=== PATIENT | male | born 1975 | race Asian ===

== ENCOUNTER → 2021-01-28 03:29 | Outpatient (CLI) | payer BC, SELFPAY ==
[2021-01-29 02:33] LABS: SARS-CoV-2 RNA PCR Negative
[2021-01-29 07:02] LABS: Influenza Control Positive
== END ==
PROVIDERS: PCP Internal Medicine; Visit Provider Internal Medicine
DX: R68.89 Other general symptoms and signs (principal); Z20.822 Contact with and (suspected) exposure to COVID-19
CPT/HCPCS: 87804; C9803; U0003; U0005

== ENCOUNTER 2021-01-31 10:10 | Emergency (ER) | payer BC, SELFPAY ==
[2021-01-31 10:22] VITALS: BP 152/89; PULSE 88; RESP 16; TEMP 36.6; O2SAT 100
--- NOTE | 2021-01-31 10:48 | ED.URI ---
HPI - URI/Sore Throat General Chief Complaint: Upper Respiratory Infection Stated Complaint: cough/congestion/sob/light headed Time Seen by Provider: 01/31/21 10:40 Source: patient and RN notes reviewed Mode of arrival: ambulatory Limitations: no limitations History of Present Illness HPI Narrative: Marlo is a 45-year-old male patient who ambulated into the [facility]. Patient states he has been sick for 8 days. He called his primary care physician on . He was set up for a Covid and flu test on 01/29/2021. Both of those test came back negative. Patient was then put on Tessalon Perles and clarithromycin for 10 days. Patient states the cough has increased and become a Hacky cough or he cannot sleep at night. Patient states he does have a history of childhood asthma. MD elicited complaint: cough Related Data Home Medications Medication Instructions Recorded Confirmed levothyroxine 150 mcg PO DAILY 02/13/19 01/31/21 bupropion HCl 300 mg 24 hr tablet, 300 mg PO QAM 03/24/19 01/31/21 extended release escitalopram oxalate 5 mg tablet 5 mg PO DAILY 03/24/19 01/31/21 atorvastatin 20 mg tablet 20 mg PO DAILY 03/25/20 01/31/21 Allergies Allergy/AdvReac Type Severity Reaction Status Date / Time No Known Allergies Allergy Verified 01/31/21 10:21 Review of Systems Review of Systems: CONSTITUTIONAL: Denies body aches, fever, chills, or sweats. EYES: Denies visual changes, redness, or discharge. ENT: Denies rhinorrhea, congestion, sore throat, or otalgia. CARDIOVASCULAR: Denies chest pain, palpitations, or edema. RESPIRATORY: + cough or dyspnea. GASTROINTESTINAL: Denies abdominal pain, nausea, vomiting, or diarrhea. GENITOURINARY: Denies dysuria or hematuria. SKIN: Denies rash, itching, or wounds. MUSCULOSKELETAL: Denies back pain, joint pain, or myalgia. NEUROLOGIC: Denies headache, numbness, tingling, or weakness. PSYCH: Denies depression or anxiety. All systems reviewed & are unremarkable except as noted in HPI and below PMFSH Family History Family History Father Family history of mental disorder Mother Family history of mental disorder Depression Grandparent Cerebrovascular accident Other Family history of arthritis Family history of cardiovascular disease Family history of osteoporosis Social History Social History Smoking status: Never smoker Second hand tobacco smoke exposure: No Alcohol intake: current Substance use: never Substance use type: does not use Comments At time of signature, I have reviewed and agree with nursing past medical, surgical, social and family history unless otherwise noted. Please see nursing chart for further information. There is no relevant family history pertinent to the presenting complaint Exam Narrative: GENERAL: Well-appearing, well-nourished, and in no acute distress. HEAD: Normocephalic, atraumatic. EYES: EOMI. No redness or drainage. Conjunctivae normal. ENT: Mucous membranes pink and moist. Nasal membranes erythematous with clear discharge. Bilateral tympanic membranes are opaque with moderate bulging. Posterior pharynx is erythemic with moderate edema and no exudate. Uvula midline. NECK: Normal AROM. Supple. Bilateral anterior cervical lymphadenopathy. CHEST: No respiratory distress. Clear to auscultation; occasional expiratory wheeze noted in upper lung mata . HEART: Regular rate and rhythm. No murmur appreciated. Normal peripheral pulses. ABDOMEN: Soft, nontender, nondistended, normal active bowel sounds. MUSCULOSKELETAL: No bony tenderness. EXTREMITIES: Normal range of motion. No edema. SKIN: Warm, dry, no rash. Capillary refill normal. Normal skin turgor. NEURO: No focal deficits. Alert and oriented x3. Gait steady. PSYCH: Normal affect. No signs of depression or anxiety. Course Vital Signs Vital signs:
== END 2021-01-31 11:03 | disposition home or self-care (01) ==
PROVIDERS: Emergency Provider Nurse Practitioner Family; PCP Internal Medicine
DX: J40 Bronchitis, not specified as acute or chronic (principal)
CPT/HCPCS: 99213; G0463

== ENCOUNTER 2022-12-11 17:43 | Emergency (ER) | payer BC, SELFPAY ==
--- NOTE | 2022-12-11 17:48 | ED.URI ---
HPI - URI/Sore Throat General Chief Complaint: Upper Respiratory Infection Stated Complaint: Sore Throat Source: patient and RN notes reviewed History of Present Illness HPI Narrative: 47-year-old male presents to urgent care with complaints of a sore throat since Wednesday. Patient reports congestion and postnasal drip. Denies any fevers, chills, ear pain, chest pain, shortness of breath, or vomiting. Related Data Home Medications Medication Instructions Recorded Confirmed levothyroxine 150 mcg tablet 150 mcg PO DAILY 02/13/19 12/11/22 Allergies Allergy/AdvReac Type Severity Reaction Status Date / Time No Known Allergies Allergy Verified 12/11/22 17:57 Review of Systems Review of Systems: Pertinent positives and pertinent negatives per HPI. PMF Family History Family History Father Family history of mental disorder Mother Family history of mental disorder Depression Grandparent Cerebrovascular accident Other Family history of arthritis Family history of cardiovascular disease Family history of osteoporosis Social History Social History Smoking status: Never smoker Second hand tobacco smoke exposure: No Alcohol intake: current Alcohol use details: occasionally Substance use: never Substance use type: does not use Lack of Transportation: No Lack of Food: Never True Current Housing: I Have Housing Concerned About Future Housing: No Difficulty Paying Gas/Electric Bills: No Difficulty Paying for Meds: No Currently Unemployed: No Education: Master's Degree or Higher Difficulty w/ Childcare or Family Care: No Living arrangements: with family Occupation/Education: occupation 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 There is no relevant family history pertinent to the patient complaint. Exam Narrative: GENERAL: This is a well-nourished, well-developed patient, in no apparent distress. HEAD: normocephalic, atraumatic. EYES: Sclera clear/white. Vision is grossly intact. EARS: External ears normal, auditory canals clear and without drainage, TMs normal without perforation. Hearing grossly intact. NOSE: External nose normal with no obvious nasal discharge, nares without redness, no rhinorrhea. THROAT: Mucous membranes moist, posterior pharynx erythemic. NECK: Neck supple, non-tender without lymphadenopathy, masses or thyromegaly. CARDIOVASCULAR: Regular rate RESPIRATORY: no respiratory distress SKIN: warm, intact with no suspicious lesions or rash, good texture and turgor. NEURO: awake, alert, and oriented to person, place and time. There were no obvious focal neurologic abnormalities. Course Course Level of Care: Express Care Visit Vital Signs Vital signs: Vital Signs Oxygen Delivery Room Air 12/11/22 17:50 Temperature 97.3 F L 12/11/22 17:56 Pulse Rate 84 12/11/22 17:56 Respiratory Rate 16 12/11/22 17:56 Blood Pressure 129/87 12/11/22 17:56 Pulse Oximetry 97 12/11/22 17:56 Oxygen Delivery Room Air 12/11/22 17:56 reviewed MDM - URI/Sore Throat MDM Narrative Medical decision making narrative: Rapid strep is negative in the office; however we will send to the lab for confirmation; there is a small percentage chance that it can come back positive; if it is, we will call you in 2-3days; and your prescription will be call in to your pharmacy. However, there is NO indication for antibiotic at this time. -Increase your fluids and Vitamin C. -Oral rinses such as: Salt water gargles and/or may use topical anesthetic (eg. Chlora
[2022-12-11 17:51] VITALS: BP 129/87; PULSE 84; RESP 16; TEMP 36.3; O2SAT 97
[2022-12-11 17:56] VITALS: BP 129/87; PULSE 84; RESP 16; TEMP 36.3; O2SAT 97
== END 2022-12-11 18:11 | disposition home or self-care (01) ==
PROVIDERS: Emergency Provider Nurse Practitioner Family; PCP Family Medicine
DX: J02.9 Acute pharyngitis, unspecified (principal)
CPT/HCPCS: 87081; 87880; 99213; G0463

== ENCOUNTER 2023-04-22 18:38 | Emergency (ER) | payer BC, SELFPAY ==
--- NOTE | ~2023-04-22 | XR_ITS ---
EXAMINATION: [id number] DATE: 04/22/2023 21:31 INDICATION: Fall. TECHNIQUE: 2 views of left knee were obtained. COMPARISON: None. FINDINGS: Bone alignment is normal. No fracture. Joint spaces are normal. No knee joint effusion. IMPRESSION: 1. Normal left knee. Reviewed, dictated and finalized at location E. OF TRAINING AND DEVELOPMENT IMPRESSION: 1. Normal left knee.
--- NOTE | ~2023-04-22 | XR_ITS ---
EXAMINATION: XR hip LT 2V w AP pelvis DATE: 04/22/2023 21:31 INDICATION: Fall. TECHNIQUE: An anteroposterior view of the pelvis and 2 views of left hip were obtained. COMPARISON: None. FINDINGS: Bone alignment is normal. No fracture. Joint spaces are normal. IMPRESSION: 1. No fracture. Reviewed, dictated and finalized at location E. CER APPRENTICE IMPRESSION: 1. No fracture.
[2023-04-22 18:44] VITALS: BP 132/88; PULSE 85; RESP 20; TEMP 36.8; O2SAT 100
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
[2023-04-22] MEDS: IBUPROFEN 600 MG TABLET PO (21:06)
[2023-04-22] MEDS: HYDROcodone/acetaminophen (*CRX) 5-325 MG TABLET 1 TAB PO (21:06)
[2023-04-22 22:56] VITALS: BP 128/90; PULSE 68; RESP 16; O2SAT 98
== END 2023-04-22 22:58 | disposition home or self-care (01) ==
PROVIDERS: Emergency Provider Emergency Medicine; PCP Family Medicine
DX: S79.922A Unspecified injury of left thigh, initial encounter (principal); V00.181A Fall from other rolling-type pedestrian conveyance, initial encounter
CPT/HCPCS: 73502; 73560; 99284; A9270

== ENCOUNTER 2024-07-06 12:01 | Outpatient (CLI) | payer BC, SELFPAY ==
--- NOTE | ~2024-07-06 | XR_ITS ---
Left elbow Technique: AP, oblique, and lateral views were obtained. Clinical History: Pain Findings: No acute fracture or dislocation is seen. Osseous alignment is anatomic. Joint spaces are p reserved. There is no displacement of the fat pads, and soft tissues are unremarkable. Impression: Unremarkable radiographs. Reviewed, dictated and finalized at location . Impression: Unremarkable radiographs.
== END 2024-07-06 12:02 | disposition home or self-care (01) ==
LOC: MICIMG 12:02
PROVIDERS: PCP Family Medicine; Visit Provider Family Medicine
DX: M25.522 Pain in left elbow (principal)
CPT/HCPCS: 73080

== ENCOUNTER 2025-02-14 04:07 | Day surgery (SDC) | payer BC, SELFPAY ==
[2025-02-12 09:20] VITALS: BMI 26.3
--- NOTE | 2025-02-12 09:26 | PC.NURSE ---
[facility] has started construction of its new state of the art ER which will open Spring 2026. With this, we anticipate parking may be a challenge for some our surgical patients and families. Parking spaces are limited but are available for all Surgical, obstetrics, and ER patients sharing this lot. If you arrive and find you are having a hard time finding a parking space, please note that we understand the challenges, please drive around the hospital and park near Hospital Entrance 1. When you enter this entrance, you can ask a volunteer to direct or take you back to the surgical waiting area to check in. We appreciate everyone?s understanding of these expected challenges while we build for your future. Report to the Outpatient Waiting Room, entrance under the green pavilion located off [address], at time _0915__ on date __02/14/25_. Planned Procedure Time: _1115__.? Time changes happen often and if your time is changed the preop area will call you the afternoon before. - You and your visitor will be asked to self-screen and do not enter if you have any COVID symptoms. Please call surgeon if you need to reschedule. - A mask is optional within the hospital at this time. Patients may have clear liquids (water, carbonated beverages, clear teas, apple juice) until 8 hours prior to surgery with a maximum of 20 ounces. - No food from midnight until time of surgery and no smoking, or chewing tobacco (or any form of nicotine). No chewing gum, candy or mints. Take only the following medications with a SIP of water on the morning of surgery: __BUPROPION, LEVOTHYROXINE AND ESCITALOPRAM DO NOT STOP ANY OF YOUR OTHER PRESCRIPTION MEDICATIONS PRIOR TO SURGERY EXCEPT THE FOLLOWING Hold all vitamins and supplements for 3 days per anesthesiologist. Medications to discontinue per physician NONE Date to take last dose Please no make-up, nail canadian, hairspray, perfume, deodorant, or body powder the day of surgery.? No jewelry (including any body piercings) or valuables the day of surgery, leave them at home.? Please take a shower or bath the night before, or the morning of, surgery with an antibacterial soap.? Wear comfortable, loose fitting clothing.? Children are encouraged to wear pajamas. - Jewelry must be removed prior to entering the operating room.? Rings and piercings that are not removed may be cut off. - The hospital will not accept responsibility for valuables.? - Please leave all valuables, including medications, at home the day of surgery. If you are going home after surgery, a licensed team cdl driver must drive you home.? - NO public transportation without another adult if you receive anesthesia. - We recommend that an adult stay with you for 24 hours following discharge. - We also recommend that you do not drive, make important decision, drink alcoholic beverages, or take any drugs that were not prescribed by your health care provider for at least 24 hours after your discharge time. For Pediatric surgeries, we recommend two adults accompany the child home. Follow any additional instructions given to you from your surgeon. Telephone instructions given to __PATIET__and asked if any additional questions and then verbalized understanding. Patient advised to call surgeon office or pre surgery nurse liaison [phone] if any additional questions.
--- OUTSIDE RECORDS SUMMARY | 2025-02-14 04:09 | XMS_ITS | Clinical Summary ---
Author Organization [facility] Address [address] [place] [address] Care Team Providers Care X Ray Service Engineer Name Role Phone Alex Barrios Primary Care Provider [phone] Source Comments [facility],non-owned Affiliates and Associated Physician Practices is amultiple site organization consisting of ambulatory clinics and hospital sitesin [place], [place], [place] and [place]. This disclosure is being madepursuant to the Care Everywhere program and may not contain all information available regarding this patient. Last updated 17.[facility] Allergies No known active allergies Medications * Be aware that medications may not be up to date on this document. Alwaysverify current medications with the patient. 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 - 01/22/2025 11:59 PM [facility] Hospital Encounter [facility] EEG/EMG [address] [place] [id number] Unknown, Provider Elena Springer MD Discharge Disposition: Home or Self Care 01/22/2025 Travel from Last 3 Months Immunizations Immunization Administration Dates Next Due TDAP (7yrs+) 01/14/2016 Social History Tobacco Use Types Packs/Day Years Used Date Smoking Tobacco: Never Smokeless Tobacco: Never Sex and Gender Information Value Date Recorded Sex Assigned at Not on file Legal Sex 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 Gender Identity Not on file Sexual Orientation Not on file Last Filed Vital Signs Vital Sign Reading Time Taken Comments Blood Pressure 122/80 02/03/2018 5:42 PM EDGING MACHINE SETTER Pulse 73 02/03/2018 5:42 PM EDGING MACHINE SETTER Temperature 36.9 C (98.4 F) 02/03/2018 5:42 PM EDGING MACHINE SETTER Respiratory Rate 15 02/03/2018 5:42 PM EDGING MACHINE SETTER Oxygen Saturation 96% 02/03/2018 5:42 PM EDGING MACHINE SETTER Inhaled Oxygen Concentration - - Weight 90.7 kg (200 lb) 02/03/2018 5:42 PM EDGING MACHINE SETTER Height 180.3 cm (5' 11) 02/03/2018 5:42 PM EDGING MACHINE SETTER Body Mass Index 27.89 02/03/2018 5:42 PM EDGING MACHINE SETTER Plan of Treatment Health Maintenance Due Date Last Done Comments COLOGUARD (AGES 45-75) - COL ON CA SCREENING 1977 CT COLONOGRAPHY - COLON CA SCREENING 1977 FIT - COLON CA SCREENING 1977 FLEX SIG - COLON CA SCREENING 1977 HIV SCREENING 1992 HEPATITIS C SCREENING 03/12/1995 HEPATITIS B VACCINE (1 of 3 - 19+ 3-dose series) 1996 SCREENING FOR DIABETES 02/03/2018 DEPRESSION SCREENING 03/01/2024 COVID-19 VACCINE (4 - 2024-2 6 season) 2024 02/24/2021, 05/18/2020, 04/27/2020 INFLUENZA VACCINE (#1) 2024 DTAP/TDAP/TD VACCINES (2 - T d or Tdap) 01/13/2026 01/14/2016 ZOSTER VACCINE (1 of 2) 2027 COLON MONITORING 08/30/2033 08/31/2023 COLONOSCOPY - COLON CA SCREENING 08/30/2033 08/31/2023 Colorectal Cancer Screening 08/30/2033 HIB VACCINE Aged Out No longer eligi ble based on patient's age to complete this topic HPV VACCINE Aged Out No longer eligi ble based on patient's age to complete this topic MENINGOCOCCAL (Group B) VACCINE SHARED DECISION-MAKING Aged Out No longer eligible based on patient's age to complete this topic MENINGOCOCCAL GROUPS A/C/Y/W VACCINE Aged Out No longer eligible b ased on patient's age to complete this topic PNEUMOCOCCAL VACCINE Aged Out No long er eligible based on patient's age to complete this topic Insurance [employer] SELF PAY NO INSURANCE Member Subscriber Plan / Payer (Ef fective for All Dates) Name:AlfonsoPeterBasilio Lariosun Member ID:Not on file Relation to Subscriber:Self Name:Ricarda Reeves Subscriber ID:Not on file Payer ID:Not on file Group ID:Not on file Type:Self Pay Address: [place], [place] Care Teams X Ray Service Engineer Relationship Specialty Start Date End Date Alex Barrios DO [address] [place] [id number] (work) PCP - General Internal Medicine 09/29/18
--- OUTSIDE RECORDS SUMMARY | 2025-02-14 04:09 | XMS_ITS | Encounter Summary ---
Author Organization [facility] Address [address] [place] [address] Phone Care Team Providers Care Orientation And Mobility Specialist Name Role Phone Unknown, Notinfile Primary Care Provider Unavail able Alex Barrios DO Primary Care Provider [phone] Tirso Colon MD Primary Care Provider [phone] Cassandra Soto MD Unavailable [phone] Sonia Miguel MD Unavailable [phone] Encounter Details Date Type Department Care Team (Latest Contact Info) Description 08/25/2019 Orders Only [facility] Scanning, Provider Social History Tobacco Use Types Packs/Day Years Used Date Smoking Tobacco: Never Sex and Gender Information Value Date Recorded Sex Assigned at Not on file 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 Gender Identity Male 08/22/2019 6:31 PM CDT Sexual Orientation Straight 08/22/2019 6: 31 PM CDT documented as of this encounter Plan of Treatment Not on file documented as of this encounter Procedures Procedure Name Priority Date/Time Associated Diagnosis Comments SCAN - LABS 08/25/2019 documented in this encounter Results * SCAN - LABS (08/25/2019) us Provider Scanning Final Result documented in this encounter Visit Diagnoses Not on filedocumented in this encounter Care Teams Orientation And Mobility Specialist Relationship Specialty Start Date End Date Unknown, Notinfile PCP - General 11/03/19 02/01/22 Alex Barrios DO PCP - General Internal Medicine 02/02/22 04/05/24 Tirso Colon MD [address] [place] [address] PCP - General Family Practice 04/06/24 Cassandra Soto MD [address] [facility] [place] [address] Referring Physician Endocrinology Diabetes & Metabolism 04/06/24 Sonia Miguel MD [address] [place] [address] Consulting Physician Gastroenterology 04/06/24 documented as of this encounter
--- OUTSIDE RECORDS SUMMARY | 2025-02-14 04:09 | XMS_ITS | Clinical Summary ---
Author Organization [facility] Address [address] [place] [address] Care Team Providers Care Personal Consultant Name Role Phone Unavailable Primary Care Provider Unavailabl e Encounters Date Type Department Care Team Description 12/26/2024 Telephone [facility] Medical Group [facility]ial[facility] Care - [facility] [address] [place] [address] Karo Montalvo MD Referral 12/25/2024 Scan [facility] Scanned, Doc Med Group from Last 3 Months Social History Tobacco Use Types Packs/Day Years Used Date Smoking Tobacco: Never Assessed Sex and Gender Information Value Date Recorded Sex Assigned at Not on file Legal Sex Male 10:10 AM CDT Gender Identity Not on file Sexual Orientation Not on file Plan of Treatment Health Maintenance Due Date Last Done Comments Colorectal Cancer Screening Colonoscopy (10 Years) 1977 Annual Physical 1980 Hepatitis C 1995 DTaP, Tdap and Td Vaccines ( 1 - Tdap) 1996 Hepatitis B Vaccines (1 of 3 - 19+ 3-dose series) 1996 COVID-19 Vaccine (2024-2 6 season) 2024 Influenza Adult (#1) 2024 Hepatitis A Vaccines Aged Out No long er eligible based on patient's age to complete this topic Meningococcal B Vaccine Aged Out No l onger eligible based on patient's age to complete this topic Meningococcal Vaccine Aged Out No argenis dennise eligible based on patient's age to complete this topic Pneumococcal Vaccine: Pediat rics (0 to 5 Years) and At-Risk Patients (6 to 49 Years) Aged Out No longer eligible b ased on patient's age to complete this topic RSV Immunizations Under 20 Months Aged Out No longer eligible based on patient's age to complete this topic
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
--- NOTE | 2025-02-14 06:42 | WPDHPUPDATE1 ---
History and Physical Update Update Date/Time: 02/14/25 06:42 Patient seen and examined in pre-operative holding area. No interval change in medical history or symptoms. Patient recalls previous discussion of benefits and alternatives to procedure. Continues to desire to proceed with right endoscopic possible open carpal tunnel release. Reviewed procedure, post-op expectations and risks including but not limited to bleeding, infection, injury to tendon/nerve/vessel, decreased hand function, stiffness, RSD, no change or worsening of symptoms. I discussed the possible use of assistants and their participation in the case. Patient stated understanding and signed the consent form wishing to proceed.
--- NOTE | 2025-02-14 06:42 | W.PM.PROC2 ---
Procedure Note - Detailed Date of Procedure 02/14/25 Pre-op Diagnosis bilateral carpal tunnel syndrome Post-op Diagnosis Same Procedure Performed right ectr Surgeon Clint Salas MD Senior Merchandiser meggan shelton pa-c Anesthesia MAC Description of Procedure INFORMED CONSENT: The patient was seen and examined and marked in the pre-op area.? The patient signed the consent form. PROCEDURE IN DETAIL:The patient taken back to OR on the stretcher in supine position. Time out performed with anesthesia, surgeon and staff agreeing on patient's name site and surgery to be performed SCDs were placed on the lower extremities and inflated. A tourniquet was placed on {right} upper extremity and antibiotics given IV After anesthesia administered sedation I injected {5}cc 1%lido with epi and 0.5% marcaine plain at the operative site The?{right upper extremity}?was prepped and draped in sterile fashion the??{right upper extremity} was? exsanguinated with Esmarch bandage and tourniquet inflated to 250mmHg I made a transverse incision in the {right} volar distal wrist crease through skin and dermis with 15 blade scalpel.? Littler scissors spread down to antebrachial fascia. A small incision was made in antebrachial fascia allowing access to Carpal tunnel. I proceeded with sequential dilation staying in line with the ring finger and hugging the hook of the hamate.? I then used the synovial elevator to free any adhesions from the underside of the transverse carpal ligament. Next I was able to insert the Microaire endoscopic carpal tunnel device with direct visualization of the transverse fibers on the monitor and proceeded with complete segmental retrograde release of the ligament in its entirety.? I irrigated with normal saline and closed with 4-0 monocryl for dermis and subcuticular closure. A dressing of Dermabond, 4x4, jing, and a volar splint was applied for patient safety, security, and comfort and secured with an miguelito bandage after the tourniquet was let down noting the hand was warm and well perfused. The patient was then awaken from anesthesia and transferred to the recovery room in stable condition.? Complications - none EBL- 0cc Disposition - home in stable condition Meggan Shelton PA-C was essential for positioning, retraction, closure and dressing placement. [facility] Billing Surgery - Charge Forward: Surgery Billing ([id number] for meggan)
[2025-02-14 07:58] VITALS: BP 129/76; PULSE 63; RESP 18; TEMP 36.4; O2SAT 100; BMI 26.7
[2025-02-14] MEDS: ACETAMINOPHEN 500 MG TABLET 1000 MG PO (08:04)
[2025-02-14] MEDS: LACTATED RINGERS 1,000 ML 30 ML IV CONT (08:04)
--- NOTE | 2025-02-14 08:46 | WPDANESEPPF ---
Anes - Initial Pre Proc Eval Procedure: Operation Date: 02/14/25 09:30 Proposed Procedures p Right Endoscopic Carpal Tunnel Release, Possible Open - Clint Salas MD Date/Time: 02/14/25 08:46 Surgeon: Clint Salas MD Pre Op Diagnosis: bilateral carpal tunnel syndrome Patient Data Age: 49 Gender: M Height: 1.83 m Weight: 89.5 kg Last Vital Signs Temp 97.6 F 02/14/25 07:58 Pulse 63 02/14/25 07:58 Resp 18 02/14/25 07:58 BP 129/76 02/14/25 07:58 Pulse Ox 100 02/14/25 07:58 O2 Del Method Room Air 02/14/25 07:58 Allergies Allergy/AdvReac Type Severity Reaction Status Date / Time No Known Allergies Allergy Verified 02/14/25 07:56 Home Medications ?Medication ?Instructions ?Recorded ?Confirmed ?Type syringe with needle 3 mL 21 gauge #100 ea 10/07/20 12/16/22 Rx x 1 1/2 (BD Integra Syringe) levothyroxine 175 mcg tablet See Rx Instructions .Route 08/07/24 02/14/25 Rx .COMPLEX #90 tabs bupropion HCl 300 mg 24 hr tablet, 300 mg PO QAM #90 tabs 08/29/24 02/14/25 Rx extended release (Wellbutrin XL) testosterone cypionate 200 mg/mL 100 mg (0.5 mL) IM .every 10 days 12/08/24 02/12/25 Rx intramuscular oil #6 mL escitalopram oxalate 5 mg tablet See Rx Instructions .Route 12/27/24 02/14/25 Rx .COMPLEX #90 tabs plecanatide 3 mg tablet (Trulance) 3 mg PO DAILY 02/12/25 02/14/25 History hydrocodone 5 mg-acetaminophen 325 1 tablet PO Q8H PRN pain #6 tabs 02/14/25 Rx mg tablet Patient hx anesthesia problems: none Family hx anesthesia problems: none Results Review: All pre-operative results and documents have been reviewed as part of the pre-operative evaluation. [facility] Family History Family History Father Family history of mental disorder Mother Family history of mental disorder Depression Grandparent Cerebrovascular accident Other Family history of arthritis Family history of cardiovascular disease Family history of osteoporosis Social History Social History Smoking status: Never smoker Second hand tobacco smoke exposure: No Alcohol intake: current Drinks per week: 1 Alcohol use details: BEER Substance use: never Substance use type: does not use Lack of Transportation: No Lack of Food: Never True Current Housing: I Have Housing Concerned About Future Housing: No Difficulty Paying Gas/Electric Bills: No Difficulty Paying for Meds: No Currently Unemployed: No Education: Master's Degree or Higher Difficulty w/ Childcare or Family Care: No Living arrangements: with family Occupation/Education: occupation 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 Hypothyroidism, pt active w argenis, no cp or sob. Informed Consent: The patient's anesthetic plan and its attendant risks and benefits were discussed with the patient/family/POA. Questions were solicited and answers provided to the satisfaction of the patient/family/POA.
[2025-02-14] MEDS: ceFAZolin 2 GM in SODIUM CHLORIDE 0.9% IV 50 ML 100 ML IVPB (09:33)
[2025-02-14] MEDS: KETOROLAC 30 MG/ML VIAL (*BKC) IV PUSH (09:43)
[2025-02-14] MEDS: LIDO 1%/EPINEPHRINE 1:100,000 50 ML VIAL 7.5 ML INFILTRATE (09:47)
[2025-02-14] MEDS: BUPivacaine HCL 0.5% 10 ML AMP 7.5 ML INFILTRATE (09:48)
[2025-02-14 09:52] VITALS: BP 107/67; PULSE 68; RESP 12; O2SAT 100
[2025-02-14 10:20] VITALS: BP 105/66; PULSE 58; RESP 13; O2SAT 97
[2025-02-14 10:45] VITALS: BP 121/72; PULSE 61; RESP 16
[2025-02-14 11:08] VITALS: BP 120/70; PULSE 60; RESP 16
== END 2025-02-14 11:20 | disposition home or self-care (01) ==
PROVIDERS: PCP Family Medicine; Visit Provider Plastic Surgery
PROC: 01N54ZZ Release Median Nerve, Percutaneous Endoscopic Approach (ICD-10-PCS; CPT 29848; principal; 2025-02-14 09:30)
DX: G56.03 Carpal tunnel syndrome, bilateral upper limbs (principal); E03.9 Hypothyroidism, unspecified; Z79.891 Long term (current) use of opiate analgesic; Z82.49 Family history of ischemic heart disease and other diseases of the circulatory system
CPT/HCPCS: 29848; J0690; A9270; J1885; J2004; J2250; J2405; J2704; J3010; J7120